=== PATIENT | female | born 1965 | race Caucasian/White ===

== ENCOUNTER → 2021-09-22 | Outpatient (CLI) | payer BC ==
[~2021-09-22] MED LIST: AMMONIUM LAC CREAM TOP; AZELASTINE; BISOPROLOL-HCT1 EAC2 PO; CENTRUM SILVER1 EAC1 PO; CETIRIZINE HCL10 MG PO; CRESTOR40 MG PO; FAMOTIDINE40 MG PO; MAGNESIUM OXID400 M2 PO; MIRALAX17 GM PO; PERCOCET 5-3251 EACH PO; ZOFRAN ODT 4 MG4 MG PO
== END ==
LOC: OPSV 11:48
DX: M85.80 Other specified disorders of bone density and structure, unspecified site (principal)
CPT/HCPCS: 96365; J3489